=== PATIENT | female | born 1995 | race Caucasian/White ===

== ENCOUNTER → 2018-08-06 | Outpatient (CLI) | payer MEDICAID | LOC: FIMAGING 13:21 | PROVIDERS: ATTEND Obstetrics & Gynecology | DX: O44.42 Low lying placenta NOS or without hemorrhage, second trimester (principal); O36.8920 Maternal care for other specified fetal problems, second trimester, not applicable or unspecified; Z3A.19 19 weeks gestation of pregnancy ==

== ENCOUNTER → 2018-09-17 | Outpatient (CLI) | payer MEDICAID | LOC: FIMAGING 10:13 ==